=== PATIENT | male | born 1980 | race Caucasian/White ===

== ENCOUNTER 2021-09-23 21:41 | Emergency (ER) | payer BC, SELFPAY ==
[2021-09-23] VITALS (10 sets, daily range): BP systolic 113–141; BP diastolic 72–86; PULSE 70; RESP 16; TEMP 36.2; O2SAT 94–98
--- NOTE | ~2021-09-23 | CT_ITS ---
EXAMINATION: CT brain wo con DATE: 09/23/2021 22:32 INDICATION: Dizziness for 3 hours TECHNIQUE: Computed tomography (CT) of the head was performed without intravenous contrast. The mA wa s adjusted according to patient size. Iterative reconstruction technique was employed. Exam dose: 68 1.00 mGy-cm total exam DLP. COMPARISON: None FINDINGS: No intracranial mass lesion or hemorrhage or cerebrovascular accident. No midline shift or mass effect. Normal vázquez-white matter differentiation. Normal ventricular size. No subdural or epidur al hematoma. The mastoid air cells and included paranasal sinuses are unremarkable. No fracture or bone destruction of the cranial vault. IMPRESSION: No significant abnormality Reviewed, dictated and finalized at [facility]. Reviewed, dictated and finalized at location [facility]. IMPRESSION: No significant abnormality
--- NOTE | ~2021-09-23 | CT_ITS ---
EXAMINATION: CT abdomen pelvis wo con DATE: 09/23/2021 22:32 INDICATION: Nausea for 3 hours TECHNIQUE: Computed tomography (CT) of the abdomen and pelvis was performed without intravenous contr ast. Automated exposure control and iterative reconstruction technique were employed. Exam dose: 152 2.55 mGy-cm total exam DLP. COMPARISON: None. FINDINGS: Mild discoid atelectasis or scarring at the lingula and minimally involving the medial segm ent of the middle lobe. The lung bases are clear of infiltrate or consolidation. Normal heart size. No pericardial or pleural effusion. Liver, gallbladder, spleen, pancreas, pancreatic duct, and adrenal glands and kidneys are unremarkabl e. No urinary tract calculus or hydroureteronephrosis. Approximately 4 x 4.7 cm fat-containing umbilical hernia. Normal caliber of the abdominal aorta. No intraperitoneal or retroperitoneal or pelvic mass lesion or adenopathy or ascites. The urinary bladder and prostate gland are unremarkable. Normal appendix. No bowel obstruction, bowel wall thickening, pneumatosis or intraperitoneal free air . Diffuse idiopathic skeletal hyperostosis of the thoracic spine. No suspicious osteolytic or osteoblas tic lesions. IMPRESSION: 4 x 4.7 cm fat-containing umbilical hernia Diffuse idiopathic skeletal hyperostosis of the thoracic spine Reviewed, dictated and finalized at [facility]. Reviewed, dictated and finalized at location [facility].
--- NOTE | ~2021-09-23 | XR_ITS ---
EXAMINATION: XR chest 1V portable 09/23/2021 22:33 INDICATION: Shortness of breath PROCEDURE: PA view of the chest COMPARISON: No prior studies for comparison. FINDINGS: The lungs are clear. The cardiomediastinal silhouette is within normal limits. There are no pleural effusions. There is no pneumothorax suspected. IMPRESSION: 1: NO ACUTE CARDIOPULMONARY DISEASE. Reviewed, dictated and finalized at location [facility].
--- NOTE | 2021-09-23 22:15 | ED.DIZZY ---
HPI - Dizziness General Chief Complaint: Dizziness Stated Complaint: Dizziness/throwing up Time Seen by Provider: 09/23/21 21:44 Source: patient and RN notes reviewed Mode of arrival: ambulatory Limitations: no limitations History of Present Illness MD elicited complaint: dizziness Onset (ago): hour(s) (4) Timing: sudden onset Severity: mild Description: lightheadedness History of similar symptoms: Yes Exacerbating factors: change in body position Relieving factors: remaining still Associated symptoms: nausea and vomiting Stroke scale total: 0 Related Data Home Medications Medication Instructions Recorded Confirmed albuterol sulfate 90 mcg/actuation 90 inh inhalation DAILY 09/23/21 09/23/21 aerosol inhaler Allergies Allergy/AdvReac Type Severity Reaction Status Date / Time No Known Allergies Allergy Unknown Verified 09/23/21 21:54 Review of Systems Review of Systems: All systems reviewed & are unremarkable except as noted in HPI and below PMFSH Past Medical History Medical History Dizziness and giddiness Exam Const: General: no acute distress Nutritional Appearance: obese Orientation/consciousness: patient oriented x3 Limitations: no limitations HENMT: Head: normal to inspection Ears: TM's normal bilaterally and EAC's normal General nose exam: Normal external nose present and Normal nares present Face and sinus: normal facial exam and sinuses nontender Mouth: Yes Normal oral and palatal mucosa present and Yes moist mucous membranes Teeth and gingiva: dentition normal Throat: posterior oropharynx normal Eyes: Conjunctivae: conjunctivae normal Pupils: Equal, round and reactive pupils present EOM: EOMs intact bilaterally Neck: Neck: normal visual inspection Chest: Chest palpation & inspection: normal inspection of the chest Resp: Effort & Inspection: normal respiratory effort Auscultation: clear to auscultation bilaterally Cardio: Rate: regular rate Rhythm: regular rhythm GI: GI Palp: Yes Soft to palpation and No Tenderness to palpation present (GI) Auscultation: normal bowel sounds : General: Yes bladder normal to palpation and Yes no CVA tenderness Back/Spine/Pelvis: Back: no CVA tenderness Skin: General skin exam: normal color Rashes: no rashes Wounds: no wounds Neuro: General: patient oriented x3, moves all extremities, no meningeal signs, no focal motor deficits and CN's II-XI intact bilaterally Cranial nerves: Yes Nystagmus not present Speech: normal speech Gait exam (Neuro): Normal gait present Extrem: General: normal to inspection and no pedal edema Psych: Mental Status: mental status grossly normal Affect: normal affect Attitude: cooperative Course Course Emergency Course: Pt was stable in the ED. No acute GI loss. normal ambulation, less dizziness. Reevaluation(s) Date: 09/23/21 Time: 22:39 Vital Signs Vital signs: Vital Signs Temperature 36.2 C L 09/23/21 21:51 Pulse Rate 70 09/23/21 21:51 Respiratory Rate 16 09/23/21 21:51 Blood Pressure 141/86 H 09/23/21 21:51 Pulse Oximetry 97 09/23/21 21:51 Temperature 36.2 C L 09/23/21 21:51 Pulse Rate 70 09/23/21 21:51 Respiratory Rate 16 09/23/21 21:51 Blood Pressure 114/72 09/23/21 23:25 Pulse Oximetry 95 09/23/21 23:25 MDM - Dizziness Differential Diagnosis Differential diagnosis: Likely benign paroxysmal positional vertigo and other (gastroenteritis) Medical Records Attestation: I reviewed the patient's medical records. Lab Data Attestation: I reviewed the patient's lab results. Result diagrams: 09/23/21 22:07 09/23/21 22:07 Labs: Lab Results 09/23/21 09/23/21 09/23/21 Range/Units 22:07 22:07 22:07 WBC 11.2 H (4.8-10.8) K/mm3 RBC 4.80 (4.70-6.10) M/mm3 Hgb 14.8 (14.0-18.0) g/dL Hct 43.4 (40.0-54.0) % MCV 90.4 (78.0-102.0) fL MCH 30.8 (27.0-3
--- NOTE | 2021-09-23 22:17 | ECG_ITS ---
Measurements Intervals [place] Rate: 69 P: 10 UT: 129 QRS: 22 QRSD: 113 T: 45 QT: 366 QTc: 392 Interpretive Statements SINUS RHYTHM ATRIAL PREMATURE COMPLEX EARLY PRECORDIAL R/S TRANSITION BASELINE ARTIFACT- I, II, III, AVR, AVL, AVF BORDERLINE ECG Electronically Signed On 09-24-2021 7:14:16 CDT by Pasquale Singh D.O.
[2021-09-23] MEDS: SODIUM CHLORIDE 0.9% IV 1,000 ML 999 ML IV CONT (22:40)
[2021-09-23] MEDS: PANTOPRAZOLE SODIUM IV 40 MG VIAL IV PUSH (22:40)
[2021-09-23] MEDS: ONDANSETRON INJ 4 MG/2 ML VIAL IV PUSH (22:40)
[2021-09-23 22:45] LABS: Basophils Absolute Auto 0.04 K/mm3 (0.00-0.10); Basophils Percent Auto 0.4 % (0.0-1.0); Eosinophils Absolute Auto 0.17 K/mm3 (0.02-0.50); Eosinophils Percent Auto 1.5 % (1.0-6.0); Hematocrit 43.4 % (40.0-54.0); Hemoglobin 14.8 g/dL (14.0-18.0); Immature Granulocyte Absolute 0.03 K/mm3 (0.00-0.00); Immature Granulocyte Percent A 0.3 % (0.0-0.0); Lymphocytes Absolute Auto 2.85 K/mm3 (1.10-4.50); Lymphocytes Percent Auto 25.5 % (18.0-42.0); Mean Corpuscular HGB Conc 34.1 g/dL (32.0-36.0); Mean Corpuscular Hemoglobin 30.8 pg (27.0-31.0); Mean Corpuscular Volume 90.4 fL (78.0-102.0); Mean Platelet Volume 8.8 fl (8.7-11.0); Monocytes Percent Auto 6.3 % (2.0-11.0); Neutrophils Absolute Auto 7.4 K/mm3 (1.7-7.2); Platelet Count Result 230 K/mm3 (150-420); Red Cell Distribution Width 11.9 % (11.6-14.4); White Blood Count 11.2 K/mm3 (4.8-10.8)
[2021-09-23 22:59] LABS: Alanine Aminotransferase 12 U/L (16-63); Albumin Level 3.6 g/dL (3.4-5.0); Alkaline Phosphatase 73 U/L (46-116); Anion Gap 5 mmol/L (8-16); Aspartate Amino Transferase 17 U/L (15-37); Bilirubin,Total 0.2 mg/dL (0.00-1.00); Blood Urea Nitrogen 14 mg/dL (7-18); Calcium 8.7 mg/dL (8.5-10.1); Carbon Dioxide 30 mmol/L (21-32); Chloride 103 mmol/L (98-108); Estimated Glomerular Filt Rate 56; Glucose 105 mg/dL (70-99); Lipase 57 U/L (73-393); Osmolality Calculated 286 mOsm/kg (285-295); Potassium 3.6 mmol/L (3.5-5.1); Sodium 138 mmol/L (136-145); Total Protein 7.5 g/dL (6.4-8.2)
[2021-09-23 23:02] LABS: Lactic Acid Reflex 0.8 mmol/L (0.4-2.0)
[2021-09-23 23:36] LABS: Add Urine Microscopic? NO; Appearance Urine Clear (Clear); Bilirubin Urine Negative (Negative); Blood Urine Negative (Negative); Color Urine Yellow (Yellow); Glucose Urine UA Negative (Negative); Ketones Urine Negative (Negative); Leukocyte Esterase Ur Negative (Negative); Nitrate Urine Negative (Negative); Protein Urine Negative (Negative); Urobilinogen Urine 0.2 mg/dL (0.2-1.0); pH Urine 6.5 (5.0-8.0)
[2021-09-24] VITALS: O2SAT 92
[2021-09-24 00:01] VITALS: BP 120/73; O2SAT 93
[2021-09-24] MEDS: MECLIZINE HCL 25 MG TABLET PO (00:09)
== END 2021-09-24 00:14 | disposition home or self-care (01) ==
PROVIDERS: Emergency Provider Emergency Medicine
DX: R42 Dizziness and giddiness (principal); K52.9 Noninfective gastroenteritis and colitis, unspecified; B34.9 Viral infection, unspecified
CPT/HCPCS: 36415; 70450; 71045; 74176; 80053; 81003; 83605; 83690; 85025; 93005; 96361; 96374; 96375; 99284; A9270; C9113; J2405; J7030

== ENCOUNTER 2022-11-04 17:06 | Emergency (ER) | payer OTHER, SELFPAY ==
--- NOTE | ~2022-11-04 | XR_ITS ---
EXAMINATION: XR chest 2V DATE: 11/04/2022 18:07 INDICATION: Left chest pain. TECHNIQUE: Frontal and lateral views of the chest were obtained. COMPARISON: Chest single view 09/23/2021, CT abdomen and pelvis 09/23/2021 FINDINGS: There is no pneumonia, pleural effusion, or pneumothorax. The heart size is normal. IMPRESSION: 1. No acute cardiopulmonary disease. Reviewed, dictated and finalized at location [facility].
--- NOTE | 2022-11-04 17:08 | ECG_ITS ---
Measurements Intervals [place] Rate: 62 P: 22 RI: 131 QRS: 6 QRSD: 105 T: 29 QT: 379 QTc: 386 Interpretive Statements SINUS RHYTHM EARLY PRECORDIAL R/S TRANSITION BORDERLINE ECG COMPARED TO ECG 09/23/2021 22:34:38 NO SIGNIFICANT CHANGES Electronically Signed On 11-04-2022 21:05:43 CDT by Pasquale Singh D.O.
[2022-11-04 17:22] VITALS: BP 173/91; PULSE 65; RESP 20; TEMP 36.4; O2SAT 100
[2022-11-04 17:25] LABS: Basophils Percent Auto 0.3 % (0.2-1.2); Eosinophils Absolute Auto 0.2 K/mm3 (0-0.3); Eosinophils Percent Auto 2.5 % (0-4.4); Hemoglobin 15.5 g/dL (14.0-18.0); Immature Granulocyte Absolute 0.02 K/mm3 (0.00-0.031); Immature Granulocyte Percent A 0.2 % (0-0.5); Lymphocytes Absolute Auto 3.34 K/mm3 (0.9-3.2); Lymphocytes Percent Auto 34.9 % (18.3-44.2); Mean Corpuscular HGB Conc 33.7 g/dl (32-36); Mean Corpuscular Hemoglobin 30.6 pg (26-34); Mean Corpuscular Volume 90.9 fl (80-100); Mean Platelet Volume 8.8 fl (7.4-10.4); Monocytes Absolute Auto 0.7 K/mm3 (0.1-0.6); Monocytes Percent Auto 7.3 % (2.6-8.5); Neutrophils Absolute Auto 5.2 K/mm3 (1.3-6.7); Neutrophils Percent Auto 54.8 % (45.5-73.1); Platelet Count Result 257 k/mm3 (150-375); Red Blood Count 5.06 M/mm3 (4.6-6.20); Red Cell Distribution Width 12.1 % (11.5-14.5); White Blood Count 9.6 K/mm3 (4.5-10.0)
[2022-11-04 17:34] LABS: Partial Thromboplastin Time 27.1 SECONDS (22.3-36.8); Prothrombin Time 13.4 Seconds (11.1-14.7)
[2022-11-04 17:49] LABS: Alanine Aminotransferase 44 U/L (6-50); Albumin Level 4.5 g/dL (3.5-5.1); Alkaline Phosphatase 79 U/L (38-126); Anion Gap 6 mmol/L (8-16); Aspartate Amino Transferase 31 U/L (17-59); Bilirubin,Total 0.6 mg/dL (0.2-1.3); Blood Urea Nitrogen 8 mg/dL (9-20); Calcium 9.1 mg/dL (8.4-10.2); Carbon Dioxide 30 mmol/L (22-30); Chloride 101 mmol/L (98-107); Estimated CRCL calculation 151 ml/min; Estimated Glomerular Filt Rate > 60; Glucose 93 mg/dL (65-110); Lipase 47 U/L (23-300); Potassium 3.8 mmol/L (3.4-5.0); Sodium 137 mmol/L (137-145)
[2022-11-04 18:02] LABS: Troponin I < 0.012 ng/mL (0.000-0.034)
[2022-11-04 19:25] VITALS: BP 116/86; PULSE 55; RESP 15; O2SAT 100
[2022-11-04] MEDS: BELLADONNA ALK/PHENOB ELIX 10 ML, MAG HYDROX/ALUMINUM HYD/SIMETH 30 ML, LIDOCAINE HCL 2... PO (20:44)
[2022-11-04] MEDS: NITROGLYCERIN SL 0.4 MG TABLET SUBLINGUAL (20:45)
[2022-11-04 20:51] LABS: Troponin I < 0.012 ng/mL (0.000-0.034)
--- NOTE | 2022-11-04 21:20 | ED.GENADULT ---
HPI - General Adult General Chief complaint: Chest Pain Stated complaint: mild chest pain Time Seen by Provider: 11/04/22 19:46 History of Present Illness HPI narrative: Patient 42-year-old gentleman who presents the emergency department with chief complaint of chest pain. Patient reports that since this morning he has been having discomfort in the left side of his chest that radiated to his left arm. Patient reports that it is very minimal at this point denies diaphoresis denies prior cardiac disease denies hypertension or diabetes. Patient reports that he does have family history for cardiac disease but is scheduled with no individuals with cardiac disease at a young age. Patient denies diaphoresis patient reports that he had no trauma Related Data Home Medications Medication Instructions Recorded Confirmed albuterol sulfate 90 mcg/actuation 90 inh inhalation DAILY 09/23/21 09/23/21 aerosol inhaler Allergies Allergy/AdvReac Type Severity Reaction Status Date / Time No Known Allergies Allergy Unknown Verified 09/23/21 21:54 Review of Systems Review of Systems: A 10 system review of systems was completed on the patient and is negative except for what is stated in the HPI. Nursing and ancillary documentation was reviewed. [facility] Past Medical History Medical History Dizziness and giddiness Exam Narrative: GENERAL: Well-appearing, well-nourished, and in no acute distress. HEAD: Normocephalic, atraumatic. EYES: PERRLA and EOMI. ENT: Nares clear, no rhinorrhea or epistaxis. Mucous membranes moist. NECK: Supple. CHEST: Clear to auscultation. No respiratory distress. HEART: Regular rate and rhythm. No murmur heard. Normal peripheral pulses. ABDOMEN: Soft, nontender, nondistended, normal active bowel sounds. EXTREMITIES: Normal range of motion. No edema. SKIN: Warm, dry, no rash. NEURO: No focal deficits. Alert and oriented x3. PSYCH: Normal mood and affect. Course Vital Signs Vital signs: Vital Signs Temperature 36.4 C L 11/04/22 17:22 Pulse Rate 65 11/04/22 17:22 Respiratory Rate 20 11/04/22 17:22 Blood Pressure 173/91 H 11/04/22 17:22 Pulse Oximetry 100 11/04/22 17:22 Oxygen Delivery Room Air 11/04/22 17:22 Temperature 36.4 C L 11/04/22 17:22 Pulse Rate 55 L 11/04/22 19:25 Respiratory Rate 15 11/04/22 19:25 Blood Pressure 116/86 11/04/22 19:25 Pulse Oximetry 100 11/04/22 19:25 Oxygen Delivery Room Air 11/04/22 17:22 Medical Decision Making MDM Narrative Medical decision making narrative: Differential diagnose includes ACS, noncardiac chest pain, atypical chest pain, esophageal spasm, pneumothorax, EKG shows sinus rhythm rate of [address] elevation or ST depression Laboratory studies were obtained on the patient which showed a white blood cell count of 9.6 electrolytes are within normal limits liver enzymes were normal troponin was less than 0.012 both 0-hour and a 3-hour lipase was 47 Chest x-ray showed no evidence of widened mediastinum or pneumothorax Vital Signs Vital Signs: Vital Signs Temperature 36.4 C L 11/04/22 17:22 Pulse Rate 65 11/04/22 17:22 Respiratory Rate 20 11/04/22 17:22 Blood Pressure 173/91 H 11/04/22 17:22 Pulse Oximetry 100 11/04/22 17:22 Oxygen Delivery Room Air 11/04/22 17:22 Temperature 36.4 C L 11/04/22 17:22 Pulse Rate 55 L 11/04/22 19:25 Respiratory Rate 15 11/04/22 19:25 Blood Pressure 116/86 11/04/22 19:25 Pulse Oximetry 100 11/04/22 19:25 Oxygen Delivery Room Air 11/04/22 17:22 Lab Data 11/04/22 17:11 11/04/22 17:11 Labs: Lab Results 11/04/22 11/04/22 Range/Units 17:11 20:14 WBC 9.6 (4.5-10.0) K/mm3 RBC 5.06 (4.6-6.20) M/mm3 Hgb 15.5 (14.0-18.0) g/dL Hct 46.0 (42.0-52.0) % MCV 90.9 (80-100) fl MCH 30.6 (26-34) pg MCHC 33.7 (3
[2022-11-04 21:38] VITALS: BP 138/82; PULSE 59; RESP 15; O2SAT 100
== END 2022-11-04 21:38 | disposition home or self-care (01) ==
PROVIDERS: Emergency Medicine; Emergency Provider Emergency Medicine
DX: R07.89 Other chest pain (principal); R94.31 Abnormal electrocardiogram [ECG] [EKG]
CPT/HCPCS: 36415; 71046; 80053; 83690; 84484; 85025; 85610; 85730; 93005; 99284; A9270

== ENCOUNTER 2024-03-22 10:23 | Outpatient (CLI) | payer BC, SELFPAY ==
[2024-03-22 11:02] LABS: Basophils Percent Auto 0.4 % (0.2-1.2); Eosinophils Absolute Auto 0.3 K/mm3 (0-0.3); Eosinophils Percent Auto 3.1 % (0-4.4); Hematocrit 45.8 % (42.0-52.0); Hemoglobin 15.4 g/dL (14.0-18.0); Immature Granulocyte Absolute 0.03 K/mm3 (0.00-0.031); Immature Granulocyte Percent A 0.3 % (0-0.5); Lymphocytes Absolute Auto 3.02 K/mm3 (0.9-3.2); Lymphocytes Percent Auto 33.9 % (18.3-44.2); Mean Corpuscular HGB Conc 33.6 g/dl (32-36); Mean Corpuscular Hemoglobin 30.8 pg (26-34); Mean Corpuscular Volume 91.6 fl (80-100); Mean Platelet Volume 8.8 fl (7.4-10.4); Monocytes Absolute Auto 0.7 K/mm3 (0.1-0.6); Monocytes Percent Auto 7.3 % (2.6-8.5); Neutrophils Absolute Auto 4.9 K/mm3 (1.3-6.7); Platelet Count Result 232 k/mm3 (150-375); Red Cell Distribution Width 12.1 % (11.5-14.5); White Blood Count 8.9 K/mm3 (4.5-10.0)
[2024-03-22 11:14] LABS: Alanine Aminotransferase 34 U/L (6-50); Albumin Level 4.3 g/dL (3.5-5.1); Alkaline Phosphatase 76 U/L (38-126); Anion Gap 6 mmol/L (4-12); Aspartate Amino Transferase 27 U/L (17-59); Bilirubin,Total 0.5 mg/dL (0.2-1.3); Blood Urea Nitrogen 14 mg/dL (9-20); Calcium 9.1 mg/dL (8.4-10.2); Carbon Dioxide 30 mmol/L (22-30); Chloride 104 mmol/L (98-107); Estimated Glomerular Filt Rate > 60; Glucose 124 mg/dL (65-110); Potassium 4.1 mmol/L (3.4-5.0); Sodium 140 mmol/L (137-145)
[2024-03-22 11:55] LABS: Hemoglobin A1C 6.4 % (<5.7)
[2024-03-22 12:09] LABS: Free T4 Free Thyroxine 0.99 ng/mL (0.78-2.19)
[2024-03-23 15:27] LABS: Cholesterol 148 mg/dL (0-200); HDL Direct 34 mg/dL; Triglycerides 119 mg/dL (<150)
[2024-03-23 15:38] LABS: LDL Cholesterol Direct 85 mg/dL
== END 2024-03-22 10:24 | disposition home or self-care (01) ==
PROVIDERS: PCP Family Medicine; Visit Provider Student in an Organized Health Care Education/Training Program
DX: Z00.00 Encounter for general adult medical examination without abnormal findings (principal); Z13.220 Encounter for screening for lipoid disorders; Z13.1 Encounter for screening for diabetes mellitus; R53.83 Other fatigue; E55.9 Vitamin D deficiency, unspecified
CPT/HCPCS: 36415; 80053; 80061; 82306; 83036; 84439; 84443; 85025

== ENCOUNTER 2024-06-04 09:15 | Outpatient (RCR) | payer BC, SELFPAY | END 2024-07-13 23:59 | disposition home or self-care (01) | LOC: ANHDMC 09:15 | PROVIDERS: PCP Family Medicine; Visit Provider Student in an Organized Health Care Education/Training Program | DX: E11.9 Type 2 diabetes mellitus without complications (principal); Z71.89 Other specified counseling | CPT/HCPCS: G0108 ==

== ENCOUNTER 2024-06-20 08:10 | Emergency (ER) | payer BC, SELFPAY ==
--- OUTSIDE RECORDS SUMMARY | 2024-06-20 08:12 | XMS_ITS | Patient Health Summary ---
Author Organization [facility] Address [address] [place] [address] Care Team Providers Care Helpdesk Specialist Name Role Phone Unavailable Primary Care Provider Unavailabl e Note from [facility],non-owned Affiliates and Associated Physician Practices is amultiple site organization consisting of ambulatory clinics and hospital sitesin [place], [place], [place] and [place]. This disclosure is being madepursuant to the Care Everywhere program and may not contain all information available regarding this patient. Last updated 18.[facility] Allergies No known active allergies Medications * Be aware that medications may not be up to date on this document. Alwaysverify current medications with the patient. * albuterol HFA (PROVENTIL; VENTOLIN; PROAIR) 108 (90 Base) MCG/ACT inhaler (Started 03/05/2021) * budesonide-formoterol (SYMBICORT) 160-4.5 MCG/ACT inhaler Symbicort 160 mcg-4.5 mcg/actuation HFA aerosol inhaler * carbamide peroxide (DEBROX) 6.5 % otic solution(Started 11/06/2021) Instill 5 (five) drops to 10 (ten) drops into right ear 2 times daily Active Problems No known active problems Immunizations * TDAP (7yrs+)(Given 04/02/2019) Social History Tobacco Use Types Packs/Day Years Used Date Smoking Tobacco: Never Smokeless Tobacco: Never Sex and Gender Information Value Date Recorded Sex Assigned at Not on file Gender Identity 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 [employer] Sexual Orientation Not on file Last Filed Vital Signs Vital Sign Reading Time Taken Comments Blood Pressure 119/80 11/06/2021 9:45 AM CDT Pulse 64 11/06/2021 9:45 AM CDT Temperature 36.8 C (98.3 F) 11/06/2021 9:45 AM CDT Respiratory Rate - - Oxygen Saturation - - Inhaled Oxygen Concentration - - Weight 150.6 kg (332 lb) 11/06/2021 9:45 AM CDT Height 185.4 cm (6' 1 ) 11/06/2021 9:45 AM CDT Body Mass Index 43.8 11/06/2021 9:45 AM CDT Procedures * TN REMOVE CERUMEN IMPACTED W INSTR CATALINO(Performed 11/06/2021) Performed for Bilateral impacted cerumen * AUDIOLOGY/TYMPANOMETRY ORDER(Performed 11/06/2021) Results * TN REMOVE CERUMEN IMPACTED W INSTR CATALINO (11/06/2021 5:30 PM CDT) Narrative Erik Garcia APRN-CNP - 11/06/2021 5:30 PM CDT Erik Garcia APRN-CNP 11/06/2021 5:34 PM Due to the findings on physical examination, in correlation with the patient's symptomatology, the decision was made to perform a procedure today in clinic. Consent obtained prior to starting procedure. Procedure note: Pre Op Dx: Impacted cerumen, bilateral Post Op: same Procedure: Cerumen removal, bilateral with microscope and instrumentation Provider: JAMAR Garcia After consent was obtained, the microscope was introduced and an ronel speculum of appropriate size was placed. Using a combination of a wax curette and micro-suction, the cerumen was carefully removed under direct visualization after multiple applications of hydrogen peroxide; however, a mild amount of impacted cerumen remained in the right EAC. The left TM was found to be intact. I (Erik Garcia NP), was present for the entire procedure and can verify that the patient tolerated the procedure well. Erik MOONEY PROCEDURE/ MINOR SURGICAL ORDERABLES * AUDIOLOGY/TYMPANOMETRY ORDER (11/06/2021 9:21 AM CDT) Brian Simmons, PhD - 11/06/2021 9:48 AM CDT Gt Drake is a 41 year old male was seen for an assessment of their hearing. The patient reports no noted difficulties. There is a report of dizziness. There is a report of tinnitus. There is not a report of otalgia. There is a report of noise exposure. There is not a history of hearing loss in the family. There is not a history of previous ear surgery. Results: Findings were reviewed and discussed with Gt Drake following the hearing evaluation. Pure-tone testing revealed normal hearing bilaterally. Plan: 1. The risks and benefits of my recommendations, as well as other treatment options were discussed today. 2. I recommend that the patient follow up with their facility, ENT or PCP PRN. Brian Salazar, Ph.D., [place]TTE., [facility]-A Plant Production Manager Director, Division of Audiology Department of Otolaryngology- Head & Neck Surgery [facility] Brian Salazar PhD AUDIOLOGY SERVICES Rosita BRISCOE
--- OUTSIDE RECORDS SUMMARY | 2024-06-20 08:12 | XMS_ITS | Referral Summary ---
Author Organization [facility] Address [address] [place] [address] Care Team Providers Care Online Affiliate Marketing Manager Name Role Phone Unavailable Primary Care Provider Unavailabl e Source Comments [facility],non-owned Affiliates and Associated Physician Practices is amultiple site organization consisting of ambulatory clinics and hospital sitesin [place], [place], [place] and [place]. This disclosure is being madepursuant to the Care Everywhere program and may not contain all information available regarding this patient. Last updated 18.[facility] Allergies No known active allergies Medications * Be aware that medications may not be up to date on this document. Alwaysverify current medications with the patient. Medication Sig Dispensed Refills Start Date End Date Status albuterol HFA (PROVENTIL; VENTOLIN; PROAIR) 108 (90 Base) MCG/ACT inhaler 03/05/2021 Active budesonide-formoterol (SYMBICORT) 160-4.5 MCG/ACT inhaler Symbicort 160 mcg-4.5 mcg/actuation HFA aerosol inhaler Active carbamide peroxide (DEBROX) 6.5 % otic solution Instill 5 (five) drops to 10 (ten) drops into right ear 2 times daily 15 mL 11/06/2021 Active Active Problems No known active problems Immunizations Name Administration Dates Next Due TDAP (7yrs+) 04/02/2019 Social History Tobacco Use Types Packs/Day Years Used Date Smoking Tobacco: Never Smokeless Tobacco: Never Sex and Gender Information Value Date Recorded Sex Assigned at Not on file Gender Identity Male 04/02/2019 3:57 PM [employer] Sexual Orientation Not on file Last Filed [...] Mass Index 43.8 11/06/2021 9:45 AM CDT Plan of Treatment Not on file
--- OUTSIDE RECORDS SUMMARY | 2024-06-20 08:12 | XMS_ITS | Data Portability ---
Author Organization [facility] Address [address] [place] [address] Assessment No assessment recorded. Plan of Treatment Reminders Order Date Submit Date Provider Last Modified By Organization Details Last Modified Time Details Appointments None recorded . Lab HbA1c (hemoglo bin A1c), blood 2021 022 [facility] In-Office Order, Internal Use Only DO Not Attach Compendium DO Not Attach Compendium, Do Not Delete/merge, [id number] 2 18:33:26 CK (creatin e kinase), total, serum 2019 020 [facility], [address] [place] [address], [facility], [place], [address], 0 09:15:45 lipid panel, serum 2019 020 [facility], [address] [place] [address], [facility], [place], [address], 0 09:15:41 CBC w/ auto diff 2019 020 [facility], [address] [place] [address], [address], [place], [address], 0 09:15:39 CMP, serum or plasma 2019 020 [facility], [address] [place] [address], [facility], [place], [address], 0 09:15:40 HbA1c (hemoglo bin A1c), blood 2019 020 [facility], [address] [place] [address], [address], [place], [address], 0 09:15:43 TSH, ultra-se nsitive, serum 2019 020 [facility], [address] [place] [address], [address], [place], [address], 0 09:15:44 vitamin B12 + folate, serum or blood 2019 020 [facility], [address] [place] [address], [address], [place], [address], 0 09:15:42 vitamin D, 25-hydro xy, total, serum 2019 020 [facility], [address] [place] [address], [address], [place], [address], 0 09:15:44 magnesiu m, serum or plasma [address] [facility], [address] [place] [address], [address], [place], [address], 0 09:15:46 Referral otolaryn gologist referral - Please call patient for the appointm ent, thanks! 2021 022 JOSEPH Proctor MD, [address] [facility], [address], [place], [address], 2 13:45:29 general surgeon referral - Please eval and treat . Thank you . 2019 020 naima Goddard MD, [address] [facility], [address], [place], [address], 0 12:49:32 Procedures None recorded . Surgeries None recorded . Imaging None recorded . Medication Orders Symbicor t 160 mcg-4.5 mcg/actu ation HFA aerosol inhaler 2019 [facility], [address], [place], [id number], 0 11:31:10 albutero l sulfate HFA 90 mcg/actu ation aerosol inhaler 2019 020 [id number] [address] [place], [id number], 0 11:30:49 ergocalc iferol (vitamin D2) 1,250 mcg (50,000 unit) capsule 2019 020 [facility][id number], [address], [id number], 2 15:43:15 albutero l sulfate HFA 90 mcg/actu ation aerosol inhaler 2019 020 [id number], [address], [id number], 0 14:55:48 Symbicor t 160 mcg-4.5 mcg/actu ation HFA aerosol inhaler 2019 020 [id number], [address], [id number], 0 14:57:54 albutero l sulfate HFA 90 mcg/actu ation aerosol inhaler 2014 015 [facility] [address] In [facility], [address] [place], [address], 5 16:41:44 Symbicor t 160 mcg-4.5 mcg/actu ation HFA aerosol inhaler 2014 015 [facility] [address] [facility], [address] [facility], [place], [address], 5 16:41:45 Patient TargetsNo targets recorded. Patient Instructions Encounter Date Encounter Id Patient Instructions Last Modified By Organization Details Last Modified Time 11/28/2014 [id number] When You Want to Lose Weight: Care Instructions dorie Not available 11/29/2014 10:05:02 PATIENT WAS RE-ASSURANCED FOR THE NOEMAL EX FOR THE LEFT THIGH, AND HE REFUSES THE REFEAAL OF DIATICIAN FOR HIS WEIGHT, BUT HE WILL WORKOUT BY HIS OWN, FOR HIS WILMAN THE IDEAL WEIGHT IS AROUND 189 POUNDS TO KEEP THE BMI AROUND 24., OTHER TONEY 6 MONTHS F/U.. [facility] Not available 11/28/2014 16:41:45 10/01/2021 [id number] A healthy lifestyle: care instructions [facility] Not available 10/01/2021 18:33:27 benign paroxysma l positional vertigo (bppv): care instructions [facility] Not available 10/01/2021 18:33:26 Reason for Referral General Surgeon Referral for Umbilical hernia umbilical hernia Please eval and treat . Thank you . 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 Referring Physician: Pasha Wade, Internal Medicine, Encounter Date: 10/01/2021 Results Created Date Observation Date Name Description Value Unit Range Abnormal Flag Note LastModifiedBy Organization Detail LastModifiedTime 01/24/20 20 01/25/2020 CBC w/ auto diff WBC 8.4 x10e3 /uL 3.4-10 .8 Not Available [facility] ([facility]) [address] [facility], [place], [address], 01/25/2020 09:15:39 01/24/2001/25/2020 CBC w/ auto diff RBC 4.83 x10e6 /uL 4.14-5 .80 Not Available [facility] ([facility]) [address] [facility], [place], [address], 01/25/2020 09:15:39 01/24/2001/25/2020 CBC w/ auto diff hemoglobin 14.7 g/dL 13.0-1 7.7 Not Available [facility] ([facility]) [address] [facility], [place], [address], 01/25/2020 09:15:39 01/24/20 20 01/25/2020 CBC w/ auto diff hematocrit 42.5 % 37.5-5 1.0 Not Available [facility] ([facility]) [address] [facility], [place], [address], 01/25/2020 09:15:39 01/24/2001/25/2020 CBC w/ auto diff MCV 88 fL 79-97 Not Available [facility] ([facility]) [address] [facility], [place], [address], 01/25/2020 09:15:39 01/24/2001/25/2020 CBC w/ auto diff MCH 30.4 pg 26.6-3 3.0 Not Available [facility] ([facility]) [address] [facility], [place], [address], 01/25/2020 09:15:39 01/24/2001/25/2020 CBC w/ auto diff MCHC 34.6 g/dL 31.5-3 5.7 Not Available [facility] ([facility]) [address] [facility], [place], [address], 01/25/2020 09:15:39 01/24/2001/25/2020 CBC w/ auto diff RDW 12.3 % 11.6-1 5.4 Not Available [facility] ([facility]) [address] [facility], [place], [address], 01/25/2020 09:15:39 01/24/2001/25/2020 CBC w/ auto diff platelets 229 x10e3 /uL 150-45 0 Not Available [facility] ([facility]) [address] [place], [address], 01/25/2020 09:15:39 01/24/2001/25/2020 CBC w/ auto diff neutrophils 63 % not estab. Not Available [facility] ([facility]) [address] [place], [address], 01/25/2020 09:15:39 01/24/20 20 01/25/2020 CBC w/ auto diff lymphs 25 % not estab. Not Available [facility] ([facility]) [address] [place], [address], 01/25/2020 09:15:39 01/24/2001/25/2020 CBC w/ auto diff monocytes 10 % not estab. Not Available [facility] ([facility]) [address] [place], [address], 01/25/2020 09:15:39 01/24/2001/25/2020 CBC w/ auto diff eos 2 % not estab. Not Available [facility] ([facility]) [address] [facility], [place], [address], 01/25/2020 09:15:39 01/24/2001/25/2020 CBC w/ auto diff basos 0 % not estab. 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 0 Not Available [facility] ([facility]) [address], [place], [address], 01/25/2020 09:15:39 01/24/2001/25/2020 CBC w/ auto diff lymphs (absolute) 2.1 x10e3 /uL 0.7-3. 1 Not Available [facility] ([facility]) [address] [facility], [place], [address], 01/25/2020 09:15:39 01/24/20 20 01/25/2020 CBC w/ auto diff monocytes(ab solute) 0.8 x10e3 /uL 0.1-0. 9 Not Available [facility] ([facility]) [address] [facility], [place], [address], 01/25/2020 09:15:39 01/24/20 20 01/25/2020 CBC w/ auto diff eos (absolute) 0.2 x10e3 /uL 0.0-0. 4 Not Available [facility] ([facility]) [address] [facility], [place], [address], 01/25/2020 09:15:39 01/24/2001/25/2020 CBC w/ auto diff baso (absolute) 0.0 x10e3 /uL 0.0-0. 2 Not Available [facility] ([facility]) [address] [facility], [place], [address], 01/25/2020 09:15:39 01/24/20 20 01/25/2020 CBC w/ auto diff immature granulocytes 0 % not estab. Not Available [facility] ([facility]) [address] [facility], [place], [address], 01/25/2020 09:15:39 01/24/20 20 01/25/2020 CBC w/ auto diff immature grans (abs) 0.0 x10e3 /uL 0.0-0. 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 Not Available [facility] ([facility]) [address] [place], [address], 01/25/2020 09:15:39 01/24/20 20 01/25/2020 CMP, serum or plasm a glucose 108 mg/dL 65-99 above high normal Not Available [facility] ([facility]) [address] [facility] [place], [address], 01/25/2020 09:15:40 01/24/20 20 01/25/2020 CMP, serum or plasm a BUN 11 mg/dL 6-20 Not Available [facility] ([facility]) [address] [place], [address], 01/25/2020 09:15:40 01/24/20 20 01/25/2020 CMP, serum or plasm a creatinine 1.07 mg/dL 0.76-1 .27 Not Available [facility] ([facility]) [address] [place], [address], 01/25/2020 09:15:40 01/24/20 20 01/25/2020 CMP, serum or plasm a eGFR if nonafricn AM 88 mL/mi n/1.7 3 >59 Not Available [facility] ([facility]) [address] [facility] [place], [address], 01/25/2020 09:15:40 01/24/20 20 01/25/2020 CMP, serum or plasm a eGFR if africn AM 101 mL/mi n/1.7 3 >59 Not Available [facility] ([facility]) [address] [facility], [place], [address], 01/25/2020 09:15:40 01/24/20 20 01/25/2020 CMP, serum or plasm a BUN/creatini ne ratio 10 9-20 Not Available [facility] [address] [facility] [place], [address], 01/25/2020 09:15:40 01/24/20 20 01/25/2020 CMP, serum or plasm a sodium 139 mmol/ L 134-14 4 Not Available [facility] ([facility]) [address] [facility] [place], [address], 01/25/2020 09:15:40 01/24/20 20 01/25/2020 CMP, serum or plasm a potassium 3.9 mmol/ L 3.5-5. 2 Not Available [facility] ([facility]) [address] [facility] [place], [address], 01/25/2020 09:15:40 01/24/20 20 01/25/2020 CMP, serum or plasm a chloride 103 mmol/ L 96-106 Not Available [facility] ([facility]) [address] [facility] [place], [address], 01/25/2020 09:15:40 01/24/20 20 01/25/2020 CMP, serum or plasm a carbon dioxide, total 24 mmol/ L 20- Not Available [facility] ([facility]) [address] [facility] [place], [address], 01/25/2020 09:15:40 01/24/20 20 01/25/2020 CMP, serum or plasm a calcium 9.1 mg/dL 8.7-10 .2 Not Available [facility] ([facility]) [address] [facility] [place], [address], 01/25/2020 09:15:40 01/24/20 20 01/25/2020 CMP, serum or plasm a protein, total 7.0 g/dL 6.0-8. 5 Not Available [facility] ([facility]) [address] [facility], [place], [address], 01/25/2020 09:15:40 01/24/2001/25/2020 CMP, serum or plasm a albumin 4.3 g/dL 4.0-5. 0 Not Available [facility] ([facility]) [address] [facility] [place], [address], 01/25/2020 09:15:40 01/24/20 20 01/25/2020 CMP, serum or plasm a globulin, total 2.7 g/dL 1.5-4. 5 Not Available [facility] ([facility]) [address] [facility] [place], [address], 01/25/2020 09:15:40 01/24/20 20 01/25/2020 CMP, serum or plasm a A/G ratio 1.6 1.2-2. 2 Not Available [facility] ([facility]) [address] [facility], [place], [address], 01/25/2020 09:15:40 01/24/2001/25/2020 CMP, serum or plasm a bilirubin, total 0.8 mg/dL 0.0-1. 2 Not Available [facility] ([facility]) [address] [facility], [place], [address], 01/25/2020 09:15:40 01/24/2001/25/2020 CMP, serum or plasm a alkaline phosphatase 81 IU/L 39-117 Not Available [facility]) [address] [facility] [place], [address], 01/25/2020 09:15:40 01/24/2001/25/2020 CMP, serum or plasm a AST (SGOT) 18 IU/L 0-40 Not Available [facility] ([facility]) [address] [facility] [place], [address], 01/25/2020 09:15:40 01/24/20 20 01/25/2020 CMP, serum or plasm a ALT (SGPT) 26 IU/L 0-44 Not Available [facility] ([facility]) [address] [facility], [place], [address], 01/25/2020 09:15:40 01/24/20 20 01/25/2020 lipid panel , serum cholesterol, total 138 mg/dL 100-19 9 Not Available [facility] ([facility]) [address] [facility], [place], [address], 01/25/2020 09:15:41 01/24/20 20 01/25/2020 lipid panel , serum triglyceride s 82 mg/dL 0-149 Not Available [facility] ([facility]) [address] [place], [address], 01/25/2020 09:15:41 01/24/2001/25/2020 lipid panel , serum HDL cholesterol 38 mg/dL >39 below low normal Not Available [facility] ([facility]) [address] [facility], [place], [address], 01/25/2020 09:15:41 01/24/2001/25/2020 lipid panel , serum VLDL cholesterol zoey 16 mg/dL 5-40 Not Available [facility] ([facility]) [address] [place], [address], 01/25/2020 09:15:41 01/24/20 20 01/25/2020 lipid panel , serum LDL chol calc ([facility]) 84 mg/dL 0-99 Not Available [facility]) [address] [facility], [place], [address], 01/25/2020 09:15:41 01/24/2001/25/2020 lipid panel , serum 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 chol/HDL ratio 3.6 ratio 0.0-5. 0 T. Chol/ HDL Ratio Men Women 1/2 Avg.R isk 3.4 3.3 Avg.R isk 5.0 4.4 2X Avg.R isk 9.6 7.1 3X Avg.R isk 23.4 11.0 Not Available [facility] ([facility]) [address] [place], [address], 01/25/2020 09:15:41 01/24/2001/25/2020 vitam in B12 + folat e, serum or blood vitamin B12 250 pg/mL 232-12 45 Not Available [facility] ([facility]) [address] [place], [address], 01/25/2020 09:15:42 01/24/2001/25/2020 vitam in B12 + folat e, serum or blood folate (folic acid), serum 5.2 NG/mL >3.0 A serum folat e jack ntrat ion of less than 3.1 ng/mL is consi dered to repre sent clini zoey defic iency . Not Available [facility] ([facility]) [address] [facility], [place], [address], 01/25/2020 09:15:42 01/24/2001/25/2020 HbA1c (hemo globi n A1c), blood hemoglobin A1C 5.9 % 4.8-5. 6 above high normal Predi abete s: 5.7 - 6.4 Diabe vinnie: >6.4 Glyce angella contr ol for adult s with diabe vinnie: <7.0 Not Available [facility] ([facility]) [address] [place], [address], 01/25/2020 09:15:43 01/24/2001/25/2020 TSH, ultra -sens itive , serum TSH 1.520 uIU/m L 0.450- 4.500 Not Available [facility] ([facility]) [address] [place], [address], 01/25/2020 09:15:44 01/24/20 20 01/25/2020 vitam in D, 25-hy droxy , total , serum vitamin D, 25-hydroxy 20.7 NG/mL 30.0-1 00.0 below low normal Vitam in D defic iency has been defin ed by the Insti tute of Medic ine and an Endoc rine Socie ty pract ice guide line as a level of serum 25-OH vitam in D less than 20 ng/mL (1,2) . The Endoc rine Socie ty went on to furth er defin e vitam in D insuf ficie ncy as a level betwe en 21 and 29 ng/mL (2). 1. IOM (Inst itute of Medic ine). 2010. Dieta ry refer ence intak es for calci um and D. Juan Carlos cid [place]: The [facility] . 2. Henrik navarro MF, Sanna villarreal [place], Sekou off-F errar i ANGEL, et al. Evalu ation , treat ment, and preve ntion of vitam in D defic iency : an Endoc rine Socie ty clini zoey pract ice guide line. JCEM. 2010; 96(7) :1911 -30. Not Available [facility] ([facility]) [address] [place], [address], 01/25/2020 09:15:44 01/24/20 20 01/25/2020 CK (crea surekha kinas e), total , serum creatine kinase,total 187 U/L 49-439 Not Available [facility]) [address] [place], [address], 01/25/2020 09:15:45 01/24/2001/25/2020 magne sium, serum or plasm a magnesium 2.2 mg/dL 1.6-2. 3 Not Available [facility] ([facility]) [address] [place], [address], 01/25/2020 09:15:46 06/06/20 22 10/01/2021 HbA1c (hemo globi n A1c), blood HbA1c 5.4% Not Available In-Office Order Internal Use Only DO Not Attach Compendium DO Not Attach Compendium, Do Not Delete/merge, [id number] 10/01/2021 18:31:02 05/31/19 17 05/31/2016 XR, chest , 2 view No observ ation record ed. [email or web address] [facility] (Imaging) [address] [place], [address], 07/10/2016 12:42:08 12/27/19 17 12/26/2016 XR, thora cic spine No observ ation record [facility]. [email or web address] ([facility]) [address] [place], [address], 12/26/2016 15:09:52 03/15/20 19 03/15/2019 XR, hand No observ ation record ed. [address] (Imaging) [address] [place], [address], 03/16/2019 09:34:37 03/15/20 19 03/15/2019 XR, wrist No observ ation record ed. [address] (Imaging) [address] [place], [address], 03/16/2019 09:34:56 03/22/20 19 03/22/2019 MRI, wrist , w/o contr ast No observ ation record ed. [address] (Imaging) [address] [place], [address], 03/29/2019 09:42:51 Result Notes None recorded. Problems Name Problem SNOMED Code Status Onset Date Resolution Date Notes Provider Name and Address Organization Details Recorded Time Umbilical hernia 590166906 Active 2019 Edchristianne Frazier PA-C Attn: Roman g,[address] [facility], [place], [address] , [facility] - [facility] 0 14:54:43 Asthma 883570868 Active 2019 winter is his worst season .... steam from schrimp or shell fish .... Troy Frazier PA-C Attn: Roman schulz,[address] [facility], [place], [place], [address] [place] [address] 2, [place] - [facility] 0 14:57:08 Family history of Raised blood lipids 632427360 Active 2019 Troy Frazier PA-C Attn: Roman schulz,[address] [facility], [place], [place], [address] [place] [address] 2, [place] [facility] 0 14:58:43 At increased risk of nutritional deficit 538324756 Active 2019 Troy Frazier PA-C Attn: Roman schulz,[address] [place], [place], [address] [place] [address] 2, [place] - [facility] 0 14:59:37 Vitamin D below reference range 103852415 Active 2019 Troy Frazier PA-C Attn: Roman schulz,[address] [facility], [place], [place], [address] [place] [address] 2, [place] - [facility] 0 12:57:49 Contusion of thigh 51951006 Active Pasha Wade MD Attn: Roman schulz,[address] [place], [place], [address] [place] [address] 2, [place] - [facility] 5 16:41:44 Morbid obesity 283367278 Active Pasha Wade MD Attn: Roman schulz,[address] [facility], [place], [place], [address] [place] [address] 2, [place] - [facility] 5 16:41:44 Problem Notes None recorded. Procedures Surgical History None recorded. Imaging Results Imaging Date Name Status LastModified by Organiz ation Details LastModified Time 05/31/2016 XR, chest, 2 view completed [email or web address] [facility] (Imaging) [address] [facility], [place], [address], 07/10/2016 12:42:08 12/26/2016 XR, thoracic spine completed [email or web address] [facility] (Imaging) [address] [place], [address], 12/26/2016 15:09:52 03/15/2019 XR, hand completed [email or web address] [facility] (Imaging) [address] [place], [address], 03/16/2019 09:34:37 03/15/2019 XR, wrist completed [email or web address] [facility] (Imaging) [address] [place], [address], 03/16/2019 09:34:56 03/22/2019 MRI, wrist, w/o contrast completed [email or web address] (Imaging) [address] [place], [address], 03/29/2019 09:42:51 Procedure Notes None recorded. Medical Equipment None Reported. Allergies No known drug allergies Medications Name Sig Start Date Stop Date Status Note LastModified by Organization Details LastModified Time amoxicill in 500 mg capsule 01/17 completed Not Available Not Available Not Available Qvar 80 mcg/actua tion Metered Aerosol oral inhaler 01/17 completed switched to symbicor t Not Available Not Available Not Available hydrocodo ne 5 mg-acetam inophen 325 mg tablet 01/17 completed Not Available Not Available Not Available clindamyc in HCl 150 mg capsule 01/17 completed Not Available Not Available Not Available tramadol 50 mg tablet 01/17 completed Not Available Not Available Not Available ketorolac 10 mg tablet 01/17 completed Not Available Not Available Not Available oxycodone -acetamin ophen 5 mg-325 mg tablet 10/01 completed Not Available Not Available Not Available meclizine 25 mg tablet active Not Available Not Available Not Available ergocalci ferol (vitamin D2) 1,250 mcg (50,000 unit) capsule Take 1 capsule every week by oral route with meals for 30 days. 10/01 completed Not Available Not Available Not Available albuterol sulfate HFA 90 mcg/actua tion aerosol inhaler Inhale 2 puffs every 4 hours by inhalati on route as needed for 30 days. active Not Available Not Available No t Available ondansetr on 4 mg disintegr ating tablet 10/01 completed Not Available Not Available Not Available Symbicort 160 mcg-4.5 mcg/actua tion HFA aerosol inhaler Inhale 2 puffs twice a day by inhalati on route at noon for 30 days. active Not Available Not Available No t Available Vitals Date Recorded Body weight Oxygen saturation Oxygen saturation in Arterial blood by Pulse oximetry Body height Body temperature Heart rate Body mass index (BMI) Systolic blood pressure Diastolic blood pressure Provider Name and Address Organization Details Last Updated DateTime 5 767394. 664981 g 97 % 97 % 185.42 cm 98.1 [degF] 58 /min 42.3 kg/m2 102 mm[Hg] 70 mm[Hg] Jacobo Lundberg MA [facility] 5 15:48:24 Date Recorded Body weight Oxygen saturation Oxygen saturation in Arterial blood by Pulse oximetry Heart rate Body temperature Systolic blood pressure Diastolic blood pressure Provider Name and Address Organization Details Last Updated DateTime 0 414413. 66 g 98 % 98 % 64 /min 98.3 [degF] 122 mm[Hg] 84 mm[Hg] Isha Contreras MA [facility] 0 14:37:55 Date Recorded Body weight Oxygen saturation Oxygen saturation in Arterial blood by Pulse oximetry Heart rate Body temperature Systolic blood pressure Diastolic blood pressure Provider Name and Address Organization Details Last Updated DateTime 0 666984. 33 g 97 % 97 % 62 /min 98.1 [degF] 136 mm[Hg] 80 mm[Hg] Isha Contreras [facility] 0 11:13:48 Date Recorded Body height Body mass index (BMI) Body weight Body temperature Oxygen saturation Oxygen saturation in Arterial blood by Pulse oximetry Heart rate Systolic blood pressure Diastolic blood pressure Provider Name and Address Organization Details Last Updated DateTime 2 185.42 cm 42.9 kg/m2 590112. 8 g 98.2 [degF] 98 % 98 % 60 /min 112 mm[Hg] 76 mm[Hg] Jacobo Lundberg MA [facility] 2 15:48:26 Social History Question Answer Notes LastModified by Organizat ion Details LastModified Time Tobacco Smoking Status Never Smoker Jacobo Lundberg MA [facility], [place] - [facility] 11/28/2014 15:48:24 Do You Have An Advance Directive? No Information not available 01/18/2020 What Is Your Level Of Alcohol Consumption? Occasional [email or web address] Information not available 11/28/2014 What Is Your Level Of Caffeine Consumption? Heavy Information not available 01/18/2020 How Much Tobacco Do You Chew? None Information not available 01/18/2020 What Type Of Diet Are You Following? REGULAR Information not available 01/18/2020 Which Illicit Or Recreational Drugs Have You Used? Denies Information not available 01/18/2020 Do You Or Have You Ever Used E-cigarettes Or Vape? 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 No Information not available 01/18/2020 Hard Of Hearing Or Deaf In One Or Both Ears? No Information not available 01/18/2020 Legally Blind In One Or Both Eyes? No Night Vision Information not available 01/18/2020 Marital Status Informati on not available 01/18/2020 What Was The Date Of Your Most Recent Tobacco Screening? 01/18/2020 Information not available 01/18/2020 Seat Belts Used Routinely Yes Information not available 01/18/2020 Smoke Alarm In Home Yes Information not available 01/18/2020 General Stress Level Low Information not available 01/18/2020 Do You Use Sunscreen Routinely? Yes Information not available 01/18/2020 On What Date Was Tobacco Cessation Counseling Provided? 01/18/2020 Information not available 01/18/2020 Sex: Unknown Functional Status Question Answer Note LastModified by Organization D etails LastModified Time What is your exercise level? Moderate Information not available 01/18/2020 Mental Status None recorded. Family History Relationship Description Onset Age of this Age Resolved Age Notes LastModified by Organization Details LastModified Time Mother Diabetes mellitus [email or web address] Not available 12/28 14:24:41 Father Asthma [email or web address] Not availabl e 01/18/2020 14:24:52 Father Hypertensive disorder [email or web address] Not available 12/28 14:24:59 Father Disorder of thyroid gland [email or web address] Not available 12/28 14:25:35 Maternal Uncle Heart disease [email or web address] Not available 12/28 14:25:50 Paternal Grandfather Heart disease [email or web address] Not available 12/28 14:26:02 Medical History Condition Response Coronary Artery Disease N Atrial Fibrillation N High Blood Pressure N Kidney or Bladder Problems N Thyroid Problems N GI Problems N Depression N COPD N Blood Clots N Eating Disorder N Skin Problems N Anemia N Heart Attack ([place]) N Anxiety Disorder N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
--- OUTSIDE RECORDS SUMMARY | 2024-06-20 08:12 | XMS_ITS | Clinical Summary ---
Author Organization [facility] Address [address] [place] [address] Care Team Providers Care Wood Polisher Name Role Phone Unavailable Primary Care Provider Unavailabl e Source Comments [facility],non-owned Affiliates and Associated Physician Practices is amultiple site organization consisting of ambulatory clinics and hospital sitesin [place], [place], [place] and [place]. This disclosure is being madepursuant to the Care Everywhere program and may not contain all information available regarding this patient. 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 Sexual Orientation Not on file Last Filed [...] 11/06/2021 9:45 AM CDT Plan of Treatment Health Maintenance Due Date Last Done Comments LIPID TESTING 1982 HIV SCREENING 1997 HEPATITIS C SCREENING 01/10/2000 HEPATITIS B VACCINE (1 of 3 - 19+ 3-dose series) 2001 COVID-19 VACCINE (2023-2 5 season) 2023 INFLUENZA VACCINE (#1) 2023 DEPRESSION SCREENING 04/28/2024 DTAP/TDAP/TD VACCINES (2 - T d or Tdap) 04/02/2029 04/02/2019 ZOSTER VACCINE (1 of 2) 01/15/2032 HIB VACCINE Aged Out No longer eligi ble based on patient's age to complete this topic HPV VACCINE Aged Out No longer eligi ble based on patient's age to complete this topic MENINGOCOCCAL (Group B) VACCINE Aged Out No longer eligible based on patient's age to complete this topic MENINGOCOCCAL VACCINE Aged Out No izzy que eligible based on patient's age to complete this topic PNEUMOCOCCAL VACCINE Aged Out No long er eligible based on patient's age to complete this topic
[2024-06-20 08:16] VITALS: BP 145/77; PULSE 74; RESP 18; TEMP 36.6; O2SAT 100; O2SAT 99
--- NOTE | 2024-06-20 08:33 | ED_ITS ---
HPI - General Adult General Chief complaint: Allergic Reaction Stated complaint: facial swelling Time Seen by Provider: 06/20/24 08:16 History of Present Illness HPI narrative: 44-year-old male presented to the emergency department for evaluation for left- sided facial swelling that was worse when he woke up this morning. Patient does have history of dental decay but has been following up with a dentist. Patient states he will recall the dentist tomorrow. The patient does have left muscle facial dental swelling. Patient reports he was recently diagnosed with diabetes. Related Data Allergies Allergy/AdvReac Type Severity Reaction Status Date / Time shellfish Allergy Severe Dyspnea / Uncoded 06/20/24 08:21 SOB Review of Systems Review of Systems: All systems reviewed & are unremarkable except as noted in HPI and below PMFSH Past Medical History Medical History (Updated 06/20/24 @ 08:37 by Robel Joe MD) Asthma Dizziness and giddiness Family History Family History (Updated 03/17/24 @ 15:27 by Erendira Granados [facility]) Father Asthma Hypertension Depression Anxiety Heart disease Thyroid disorder Mother Diabetes mellitus Hypertension Cerebrovascular accident Grandparent Cancer Cerebrovascular accident Heart disease Social History Social History (Updated 03/17/24 @ 14:57 by Erendira Granados [facility]) Smoking status: Never smoker Second hand tobacco smoke exposure: No Alcohol intake: current Exam Narrative: APPEARANCE: Well appearing, no pain, no distress, well-nourished. HEAD: normocephalic, left-sided facial swelling. EYES: PERRLA/EOMI, conjunctivae clear. NOSE: Normal no drainage Mouth: Extensive dental decay with no abscess amenable to drainage, no trismus EARS:TMS clear with good light reflex. THROAT: Pharynx clear, no exudate. NECK: Supple. No adenopathy, no masses. RESPIRATORY: Airway patent, respirations nonlabored. Clear to auscultation bilaterally, no rales, rhonchi, wheezing. CARDIOVASCULAR: Regular rate and rhythm without murmurs rubs or gallops. ABDOMINAL: Soft, nontender, nondistended, normal bowel sounds MUSCULOSKELETAL: Moves all extremities. Strength/ROM intact, No edema, No calf tenderness. NEURO: Alert. Cranial nerves II through XII intact. Good gait. Good coordination SKIN: Warm, dry. Normal Color Course Vital Signs Vital signs: Vital Signs Temperature 97.8 F 06/20/24 08:16 Pulse Rate 74 06/20/24 08:16 Respiratory Rate 18 06/20/24 08:16 Blood Pressure 145/77 H 06/20/24 08:16 Pulse Oximetry 99 06/20/24 08:16 Oxygen Delivery Room Air 06/20/24 08:16 Temperature 97.8 F 06/20/24 08:16 Pulse Rate 74 06/20/24 08:16 Respiratory Rate 18 06/20/24 08:16 Blood Pressure 145/77 H 06/20/24 08:16 Pulse Oximetry 100 06/20/24 08:16 Oxygen Delivery Room Air 06/20/24 08:16 Medical Decision Making MDM Narrative Medical decision making narrative: 44-year-old male presented to the emergency department for evaluation for left- sided facial swelling, no hives, no concern for angioedema. Exam is consistent with dental infection. Patient was started on Augmentin the emergency department. Patient will be discharged home with Augmentin. Patient states he does have close follow-up with a dentist. Patient and family were educated on reasons to return to the emergency department. All questions concerns were addressed. Differential Diagnosis Differential Diagnosis: Facial abscess, dental decay, angioedema, allergic reaction Vital Signs Vital Signs: Vital Signs Temperature 97.8 F 06/20/24 08:16 Pulse Rate 74 06/20/24 08:16 Respiratory Rate 18 06/20/24 08:16 Blood Pressure 145/77 H 06/20/24 08:16 Pulse Oximetry 99 06/20/24 08:16 Oxygen Delivery Room Air 06/20/24 08:16 Temperature 97.8 F 06/20/24 08:16 Pulse Rate 74 06/20/24 08:16 Respiratory Rate 18 06/20/24 08:16 Blood Pressure 145/77 H 06/20/24 08:16 Pulse Oximetry 100 06/20/24 08:16 Oxygen Delivery Room Air 06/20/24 08:16 Discharge Plan Discharge Clinical Impression: Dental infection, Facial swelling Patient Disposition: Home, Self-Care Condition: Stable Instructions: Antibiotic Form, Dental Abscess (ED) Additional Instructions: Tylenol and ibuprofen for pain and swelling. Antibiotic as directed until completed. You will need to have close follow-up with your dentist. If you have any worsening symptoms then please call or return to the emergency department. Patient Language: Austrian Prescriptions: New amoxicillin-pot clavulanate 875-125 mg tablet 1 tablet PO Q12H 7 Days Qty: 14 0RF Follow-up/Referrals: Taylor Yang MD [Primary Care Provider] -
--- OUTSIDE RECORDS SUMMARY | 2024-06-20 08:36 | XMS_ITS | Patient Health Summary ---
Author Organization [facility] [place] Address [address] [place] [address] Care Team Providers Care Delicatessen Manager Name Role Phone Unavailable Primary Care Provider Unavailabl e Note from [facility],non-owned Affiliates and Associated Physician Practices is amultiple site organization consisting of ambulatory clinics and hospital sitesin [place], [place], [place] and [place]. This disclosure is being madepursuant to the Care Everywhere program and may not contain all information available regarding this patient. 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 Brian Salazar, Ph.D., CHARLETTE., [facility] Digital Strategist Director, Division of Audiology Department of Otolaryngology- Head & Neck Surgery [facility] Brian Salazar PhD AUDIOLOGY SERVICES Rosita BRISCOE
--- OUTSIDE RECORDS SUMMARY | 2024-06-20 08:36 | XMS_ITS | Referral Summary ---
Author Organization [facility] [employer] Address [address] [place] [address] Care Team Providers Care Batter Out Name Role Phone Unavailable Primary Care Provider Unavailabl e Source Comments [facility],non-owned Affiliates and Associated Physician Practices is amultiple site organization consisting of ambulatory clinics and hospital sitesin [place], [place] and [place]. This disclosure is being madepursuant to the Care Everywhere program and may not contain all information available regarding this patient. 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
--- OUTSIDE RECORDS SUMMARY | 2024-06-20 08:36 | XMS_ITS | Clinical Summary ---
Author Organization [facility] Address [address] [place] [address] Care Team Providers Care Tight Cooper Name Role Phone Unavailable Primary Care Provider Unavailabl e Source Comments [facility],non-owned Affiliates and Associated Physician Practices is amultiple site organization consisting of ambulatory clinics and hospital sitesin [place], [place], [place] and [place]. This disclosure is being madepursuant to the Care Everywhere program and may not contain all information available regarding this patient. 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
[2024-06-20] MEDS: AMOXICILLIN/CLAVULANATE K 875-125 MG TAB 1 TABLET PO (08:43)
== END 2024-06-20 08:44 | disposition home or self-care (01) ==
PROVIDERS: Emergency Provider Emergency Medicine; PCP Family Medicine
DX: K04.7 Periapical abscess without sinus (principal); J45.909 Unspecified asthma, uncomplicated
CPT/HCPCS: 99283; A9270

== ENCOUNTER 2024-07-30 09:04 | Outpatient (RCR) | payer BC, SELFPAY | END 2024-10-18 14:06 | disposition home or self-care (01) | LOC: ANHDMC 09:04 | PROVIDERS: PCP Family Medicine; Visit Provider Student in an Organized Health Care Education/Training Program | DX: E11.9 Type 2 diabetes mellitus without complications (principal); Z71.3 Dietary counseling and surveillance | CPT/HCPCS: G0108 ==